=== PATIENT | male | born 1975 | race Caucasian/White ===

== ENCOUNTER 2017-06-14 17:03 | Emergency (ER) | payer OTHER ==
[~2017-06-14] VITALS: Ht 167.6 cm; Wt 81.6 kg
[~2017-06-14 17:03] MED LIST: BACTRIM DS 8001 TA1 PO; CYCLOBENZAPRINE10 MG PO; CYCLOBENZAPRINE5 M3 PO; HYDROCODONE BIT1 T11 PO; LOMOTIL 0.025 M1 TA1 PO; MEDROL DOSEPAK4 MG PO; Motrin,Rufen800 MG PO; NORCO 10-325 T1 EACH PO; ZOFRAN ODT4 MG SL
[2017-06-14] MEDS ORDERED: KEFLEX500 M1 PO (17:16)
[2017-06-14] MEDS ORDERED: SEPTDS PO (17:16)
[2017-06-14] MEDS ORDERED: Bactroban Oint22 GM T (17:16)
== END 2017-06-14 17:28 | disposition home or self-care (01) ==
LOC: ED 17:03
DX: L03.116 Cellulitis of left lower limb (principal); Z88.1 Allergy status to other antibiotic agents